=== PATIENT | male | born 1935 | race Caucasian/White ===

== ENCOUNTER 2023-09-03 19:15 | Observation (INO) | payer MEDICARE, SELFPAY ==
[2023-09-03 19:23] VITALS: BP 169/98; PULSE 68; RESP 20; TEMP 36.9; O2SAT 97; BMI 23.7
--- NOTE | 2023-09-03 19:27 | CTR_ITS ---
PROCEDURE INFORMATION: Exam: CT Head Without Contrast Exam date and time: 09/03/2023 7:35 PM Age: 87 years old Clinical indication: Stroke-like symptoms; Altered mental status/memory loss and speech disturbance; Additional info: AMS, expressive aphasia, slurred speech TECHNIQUE: Imaging protocol: Computed tomography of the head without contrast. Radiation optimization: All CT scans at this facility use at least one of these dose optimization techniques: automated exposure control; mA and/or kV adjustment per patient size (includes targeted exams where dose is matched to clinical indication); or iterative reconstruction. Other technique: STROKE PROTOCOL was implemented. REPORTING DATA: Count of CT and Cardiac NM exams in prior 12 months: This patient has received 0 known CTs and 0 known cardiac nuclear medicine studies in the 12 months prior to the current study. COMPARISON: No relevant prior studies available. RADIATION DOSE METRICS: Total DLP (mGy-cm): 1060.48 FINDINGS: Brain: There is no evidence of intracranial hemorrhage. No mass effect or midline shift. No territorial edema. There are moderate confluent periventricular hypodensities consistent with chronic microischemic changes of white matter. There is a chronic lacunar infarct of the left basal ganglia. Cerebral ventricles: There is moderate volume loss and commensurate ventricular dilatation, consistent with the patient's age. Paranasal sinuses: There are retention cysts in the left maxillary sinus. No air-fluid levels. Mastoid air cells: The visualized mastoid air cells are well aerated. Bones/joints: No acute fracture. Soft tissues: Unremarkable. Vasculature: There is atheromatous calcification of the intracranial internal carotid and vertebral arteries. CT/CT head wo con* [id number] IMPRESSION: 1. No acute findings. 2. Moderate cerebral small-vessel disease. 3. 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 4. Age-related involutional changes of brain. ASSESSMENT: ASPECTS ([place] Stroke Program Early CT Score) is 10.
--- NOTE | 2023-09-03 19:27 | XRR_ITS ---
PROCEDURE INFORMATION: Exam: XR Chest Exam date and time: 09/03/2023 7:52 PM Age: 87 years old Clinical indication: Other: AMS; HTN; Patient HX: AMS; Weakness; HTN TECHNIQUE: Imaging protocol: Radiologic exam of the chest. Views: 1 view. COMPARISON: No relevant prior studies available. FINDINGS: Lungs: There is no consolidation. Pleural spaces: No pleural effusion or pneumothorax. Heart/Mediastinum: The heart and mediastinum are normal in size. Bones/joints: Mild dextroconvex rotoscoliosis upper thoracic spine. XR/XR chest 1V portable [id number] IMPRESSION: No acute findings.
--- NOTE | 2023-09-03 19:46 | ECG_ITS ---
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 Measurements Intervals [place] Rate: 65 P: 10 CO: 214 QRS: 89 QRSD: 103 T: 62 QT: 401 QTc: 418 Interpretive Statements SINUS RHYTHM WITH FIRST DEGREE AV BLOCK SEPTAL MYOCARDIAL INFARCTION , OF INDETERMINATE AGE [40+ ms Q WAVE IN V1/V2] No previous ECG available for comparison Electronically Signed On 09-04-2023 22:53:32 CDT by Ehsan Haile M.D. [id number]
--- NOTE | 2023-09-03 20:02 | W.ED.NEUROSD ---
Documented by User: Rudolph Torres, DO 09/03/23 22:56 HPI - Neuro Symptoms/Deficit General: Chief Complaint: Neuro Symptoms/Deficit Stated Complaint: possible stroke Time Seen by Provider: 09/03/23 19:22 Source: patient and family History of Present Illness: 87-year-old male who went to bed around 345 this afternoon. After waking, he went to the bathroom. Family noticed when asking him questions, that he could not express himself appropriately. His words did not make sense. His [id number], who is an OT, ask him several questions, most of which she could not answer appropriately. He followed commands normally. He did draw a normal appearing clock. He has a history of previous stroke with some right-sided symptoms including leg weakness worsened by need for ORIF to the right hip after a fall. He did have some slurred speech as well after his for stroke. Associated symptoms: Deny chest pain, headache(s) or vomiting Review of Systems Const: Denies: fever(s) ENMT: Denies: throat pain Card: Denies: chest pain or palpitations Resp: Denies: dyspnea, productive cough or non-productive cough GI: Denies: abdominal pain or vomiting : Reports: difficulty urinating (Chronic) and urinary frequency (Chronic) Skin/Breast: Denies: rash Neuro: Denies: headache(s) NIH stroke score NIHSS: Level Of Consciousness - 1a: 0 Level Of Consciousness Questions - 1b: Both Correct Level Of Consciousness Commands - 1c: Both Correct Best Gaze - 2: Normal Visual King - 3: No Visual Loss Facial Palsy - 4: Normal Motor Arm Right - 5: No Drift Motor Arm Left - 5: No Drift Motor Leg Right - 6: No Drift Motor Leg Left - 6: No Drift Limb Ataxia - 7: Absent Sensory - 8: Normal Best Language - 9: Mild/Moderate Aphasia Dysarthia - 10: Mild/Moderate Dysarthia Extinction And Inattention - 11: 0 Score: Total Score: 2 Physical Exam Const: COMMON NORMALS: no acute distress and alert GENERAL APPEARANCE: frail appearing (Mildly); not ill appearing HENMT: COMMON NORMALS: normocephalic, atraumatic and Normal external nose present HEAD & SCALP: normocephalic and atraumatic FACE & SINUS: normal facial exam and face symmetric NOSE: Normal external nose present Eye: COMMON NORMALS: Equal, round and reactive pupils present and EOMs intact bilaterally PUPIL: Yes Equal, round and reactive pupils present Neck/C-Spine: GENERAL: Yes trachea midline Chest: CHEST: Yes Symmetrical chest wall rise Resp: COMMON NORMALS: normal respiratory effort and clear to auscultation bilaterally AUSCULTATION: clear to auscultation bilaterally Cardio: COMMON NORMALS: regular rate and regular rhythm RATE: regular rate RHYTHM: regular rhythm GI: COMMON NORMALS: Normal to inspection, nondistended, normoactive bowel sounds present Extremity: GENERAL: No cyanosis and Yes edema (Minimal) Neuro: CLAUDETTE COMA SCALE: document GCS findings Claudette coma scale eye opening: Spontaneous Panther Burn coma scale verbal response: Orientated Claudette coma scale motor response: Obey commands Panther Burn coma scale total score: 15 SENSORIUM/ORIENTATION: Yes alert CRANIAL NERVES: Yes CN normal except as noted COORDINATION/BALANCE: [id number] test normal and [id number]-dj-hagt test normal SPEECH: abnormal speech and expressive aphasia MOTOR EXAM: Pronator motor function not present COORDINATION: [id number]-[id number] test normal and xyei-ft-kvqy test normal Psych: COMMON NORMALS: mental status grossly normal APPEARANCE: Yes grossly normal ATTITUDE: Yes calm Course Vital Signs: Vital signs: Vital Signs Temperature 98.4 F 09/03/23 19:23 Pulse Rate 71 09/03/23 22:48 Respiratory Rate 16 09/03/23 21:18 Blood Pressure 153/86 09/03/23 22:48 Pulse Oximetry 96 09/03/23 22:48 Oxygen Delivery Me thod Room Air 09/03/23 22:48 MDM - Neuro Symptoms/Deficit Medical Decision Making 87-year-old male gentleman with significant expressive aphasia and waking from a nap. He is improved at this point. Family notes that he is back to near baseline. He was quite hypertensive on arrival, with blood pressures as high as 200s over 100s. This has been treated gently. He is afebrile. CBC is normal essentially. BMP shows a creatinine of 1.8, is otherwise not remarkable. Head CT showed no acute findings, but a chronic lacunar infarct on the left. CTA of the brain shows no critical stenosis. There are greater than 100 whites in the urine, with 0-4 reds. Spoke with hospitalist about observation admission due to significant symptoms on presentation, with urinary tract infection. He will see the patient in the ER. Lab Data 09/03/23 20:18 09/03/23 20:18 Radiology Impressions Chest X-Ray 09/03/23 19:27 IMPRESSION: No acute findings. Head CT 09/03/23 19:27 IMPRESSION: 1. No acute findings. 2. Moderate cerebral small-vessel disease. 3. 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 4. Age-related involutional changes of brain. ASSESSMENT: ASPECTS ([place] Stroke Program Early CT Score) is 10. Head/Neck CTA 09/03/23 20:10 IMPRESSION: No large vessel stenosis or occlusion. IMPRESSION: 1. Normal right extracranial internal carotid artery by NASCET criteria.. 2. Atheromatous plaque at the origin of the left extracranial ICA with no stenosis by NASCET criteria. 3. Normal bilateral vertebral arteries. REFERENCES: NASCET CRITERIA. The degree of stenosis in the cervical segment of the internal carotid artery is based on NASCET criteria. Normal is no stenosis. Mild is less than 50% stenosis. Moderate is 50-69% stenosis. Severe is 70% to 99% stenosis. Total occlusion is no detectable patent lumen. Laboratory Results WBC 6.31 10^3/uL (3.29-11.43) 09/03/23 20:18 RBC 4.88 10^6/uL (3.85-5.65) 09/03/23 20:18 Hgb 14.40 g/dL (11.27-16.99) 09/03/23 20:18 Hct 44.1 % (37-53) 09/03/23 20:18 MCV 90.4 fl (82-101) 09/03/23 20:18 MCH 29.5 pg (27-33) 09/03/23 20:18 MCHC 32.7 g/dL (30-55) 09/03/23 20:18 RDW 12.9 % (12.1-15.1) 09/03/23 20:18 Plt Count 111 10^3/cmm (157-399) L 09/03/23 20:18 MPV 10.8 fL (7.4-10.4) H 09/03/23 20:18 Neut % (Auto) 58.1 % 09/03/23 20:18 Lymph % (Auto) 26.1 % 09/03/23 20:18 Faulk % (Auto) 11.4 % 09/03/23 20:18 Eos % (Auto) 3.3 % 09/03/23 20:18 Baso % (Auto) 0.8 % 09/03/23 20:18 Neut # (Auto) 3.66 10^3/uL (1.8-7.7) 09/03/23 20:18 Lymph # (Auto) 1.7 10^3/uL (0.8-4.8) 09/03/23 20:18 Faulk # (Auto) 0.7 10^3/uL (0.2-0.9) 09/03/23 20:18 Eos # (Auto) 0.2 10^3/uL (0.0-0.8) 09/03/23 20:18 Baso # (Auto) 0.1 10^3/uL (0.0-0.1) 09/03/23 20:18 Nucleated RBC % (auto) 0 % 09/03/23 20:18 Nucleated RBCs # 0.0 /100WBC 09/03/23 20:18 PT 12.60 SECONDS (12.1-14.9) 09/03/23 20:18 INR 0.92 (0.8-1.2) 09/03/23 20:18 APTT 24.3 SECONDS (23.9-36.7) 09/03/23 20:18 Sodium 137 mmol/L (136-145) 09/03/23 20:18 Potassium 4.1 mmol/L (3.5-5.1) 09/03/23 20:18 Chloride 103 mmol/L (98-107) 09/03/23 20:18 Carbon Dioxide 26 mmol/L (22-29) 09/03/23 20:18 Anion Gap 12.1 (5-19) 09/03/23 20:18 BUN 24 mg/dL (8-23) H 09/03/23 20:18 Creatinine 1.8 mg/dL (0.7-1.2) H 09/03/23 20:18 GFR Calculation Not Reportable 09/03/23 20:18 Glucose 96 mg/dL (65-115) 09/03/23 20:18 Calculated Osmolality 288 mOsm/kg (285-295) 09/03/23 20:18 Lactic Acid 1.4 mmol/L (0.5-2.2) 09/03/23 20:18 Calcium 9.5 mg/dL (8.5-10.5) 09/03/23 20:18 Magnesium 2.0 mg/dL (1.7-2.3) 09/03/23 20:18 Total Bilirubin 0.4 mg/dL (0.15-1.2) 09/03/23 20:18 AST 12 U/L (0-40) 09/03/23 20:18 ALT 9 U/L (0-41) 09/03/23 20:18 Alkaline Phosphatase 75 U/L (40-130) 09/03/23 20:18 C-Reactive Protein 3.0 mg/L (0.0-4.9) 09/03/23 20:18 Total Protein 7.0 g/dL (6.6-8.7) 09/03/23 20:18 Albumin 3.9 g/dL (3.5-5.2) 09/03/23 20:18 Globulin 3.1 g/dL (1.3-4.6) 09/03/23 20:18 Urine Color Yellow (Yellow) 09/03/23 19:43 Urine Appearance Cloudy (CLEAR) A 09/03/23 19:43 Urine pH 6 (5-7) 09/03/23 19:43 Ur Specific [place] 1.010 (1.005-1.030) 09/03/23 19:43 Urine Protein Neg (Negative) 09/03/23 19:43 Urine Glucose (UA) Norm (Normal) 09/03/23 19:43 Urine Ketones Negative (Negative) 09/03/23 19:43 Urine Blood Neg (Negative) 09/03/23 19:43 Urine Nitrate Negative (Negative) 09/03/23 19:43 Urine Bilirubin Neg (Negative) 09/03/23 19:43 Urine Urobilinogen Neg mg/dL (Negative) 09/03/23 19:43 Ur Leukocyte Esterase 2+ (Negative) H 09/03/23 19:43 Urine RBC 0-4 /hpf (0-2) H 09/03/23 19:43 Urine WBC >100 /hpf (0-5) H 09/03/23 19:43 Ur Squamous Epith Cells None /hpf (0-5) 09/03/23 19:43 Amorphous Sediment Not Reportable 09/03/23 19:43 Urine Bacteria 3+ /hpf (NONE) H 09/03/23 19:43 Ethyl Alcohol < 10 mg/dL (0-10) 09/03/23 20:18 All radiology interpretation(s) finalized by discharge Discharge Plan Discharge Patient Disposition: Placed in Observation Clinical Impression: Urinary tract infection, Hypertension, Expressive aphasia Coding Level of Care Code ED Gum Mixer for Chg Fwd Documented by User: Carter Lynch MD 09/03/23 21:19 HPI - Neuro Symptoms/Deficit General: Chief Complaint: Neuro Symptoms/Deficit Stated Complaint: possible stroke Time Seen by Provider: 09/03/23 19:22 NIH stroke score Score: Total Score: 2 Physical Exam Neuro: CLAUDETTE COMA SCALE: document GCS findings Panther Burn coma scale total score: 15 Course Vital Signs: Vital signs: Vital Signs Temperature 98.4 F 09/03/23 19:23 Pulse Rate 71 09/03/23 22:48 Respiratory Rate 16 09/03/23 21:18 Blood Pressure 153/86 09/03/23 22:48 Pulse Oximetry 96 09/03/23 22:48 Oxygen Delivery Me thod Room Air 09/03/23 22:48 MDM - Neuro Symptoms/Deficit Lab Data 09/03/23 20:18 09/03/23 20:18 Radiology Impressions Chest X-Ray 09/03/23 19:27 IMPRESSION: No acute findings. Head CT 09/03/23 19:27 IMPRESSION: 1. No acute findings. 2. Moderate cerebral small-vessel disease. 3. 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 4. Age-related involutional changes of brain. ASSESSMENT: ASPECTS ([place] Stroke Program Early CT Score) is 10. Head/Neck CTA 09/03/23 20:10 IMPRESSION: No large vessel stenosis or occlusion. IMPRESSION: 1. Normal right extracranial internal carotid artery by NASCET criteria.. 2. Atheromatous plaque at the origin of the left extracranial ICA with no stenosis by NASCET criteria. 3. Normal bilateral vertebral arteries. REFERENCES: NASCET CRITERIA. The degree of stenosis in the cervical segment of the internal carotid artery is based on NASCET criteria. Normal is no stenosis. Mild is less than 50% stenosis. Moderate is 50-69% stenosis. Severe is 70% to 99% stenosis. Total occlusion is no detectable patent lumen. Laboratory Results WBC 6.31 10^3/uL (3.29-11.43) 09/03/23 20:18 RBC 4.88 10^6/uL (3.85-5.65) 09/03/23 20:18 Hgb 14.40 g/dL (11.27-16.99) 09/03/23 20:18 Hct 44.1 % (37-53) 09/03/23 20:18 MCV 90.4 fl (82-101) 09/03/23 20:18 MCH 29.5 pg (27-33) 09/03/23 20:18 MCHC 32.7 g/dL (30-55) 09/03/23 20:18 RDW 12.9 % (12.1-15.1) 09/03/23 20:18 Plt Count 111 10^3/cmm (157-399) L 09/03/23 20:18 MPV 10.8 fL (7.4-10.4) H 09/03/23 20:18 Neut % (Auto) 58.1 % 09/03/23 20:18 Lymph % (Auto) 26.1 % 09/03/23 20:18 Faulk % (Auto) 11.4 % 09/03/23 20:18 Eos % (Auto) 3.3 % 09/03/23 20:18 Baso % (Auto) 0.8 % 09/03/23 20:18 Neut # (Auto) 3.66 10^3/uL (1.8-7.7) 09/03/23 20:18 Lymph # (Auto) 1.7 10^3/uL (0.8-4.8) 09/03/23 20:18 Faulk # (Auto) 0.7 10^3/uL (0.2-0.9) 09/03/23 20:18 Eos # (Auto) 0.2 10^3/uL (0.0-0.8) 09/03/23 20:18 Baso # (Auto) 0.1 10^3/uL (0.0-0.1) 09/03/23 20:18 Nucleated RBC % (auto) 0 % 09/03/23 20:18 Nucleated RBCs # 0.0 /100WBC 09/03/23 20:18 PT 12.60 SECONDS (12.1-14.9) 09/03/23 20:18 INR 0.92 (0.8-1.2) 09/03/23 20:18 APTT 24.3 SECONDS (23.9-36.7) 09/03/23 20:18 Sodium 137 mmol/L (136-145) 09/03/23 20:18 Potassium 4.1 mmol/L (3.5-5.1) 09/03/23 20:18 Chloride 103 mmol/L (98-107) 09/03/23 20:18 Carbon Dioxide 26 mmol/L (22-29) 09/03/23 20:18 Anion Gap 12.1 (5-19) 09/03/23 20:18 BUN 24 mg/dL (8-23) H 09/03/23 20:18 Creatinine 1.8 mg/dL (0.7-1.2) H 09/03/23 20:18 GFR Calculation Not Reportable 09/03/23 20:18 Glucose 96 mg/dL (65-115) 09/03/23 20:18 Calculated Osmolality 288 mOsm/kg (285-295) 09/03/23 20:18 Lactic Acid 1.4 mmol/L (0.5-2.2) 09/03/23 20:18 Calcium 9.5 mg/dL (8.5-10.5) 09/03/23 20:18 Magnesium 2.0 mg/dL (1.7-2.3) 09/03/23 20:18 Total Bilirubin 0.4 mg/dL (0.15-1.2) 09/03/23 20:18 AST 12 U/L (0-40) 09/03/23 20:18 ALT 9 U/L (0-41) 09/03/23 20:18 Alkaline Phosphatase 75 U/L (40-130) 09/03/23 20:18 C-Reactive Protein 3.0 mg/L (0.0-4.9) 09/03/23 20:18 Total Protein 7.0 g/dL (6.6-8.7) 09/03/23 20:18 Albumin 3.9 g/dL (3.5-5.2) 09/03/23 20:18 Globulin 3.1 g/dL (1.3-4.6) 09/03/23 20:18 Urine Color Yellow (Yellow) 09/03/23 19:43 Urine Appearance Cloudy (CLEAR) A 09/03/23 19:43 Urine pH 6 (5-7) 09/03/23 19:43 Ur Specific [place] 1.010 (1.005-1.030) 09/03/23 19:43 Urine Protein Neg (Negative) 09/03/23 19:43 Urine Glucose (UA) Norm (Normal) 09/03/23 19:43 Urine Ketones Negative (Negative) 09/03/23 19:43 Urine Blood Neg (Negative) 09/03/23 19:43 Urine Nitrate Negative (Negative) 09/03/23 19:43 Urine Bilirubin Neg (Negative) 09/03/23 19:43 Urine Urobilinogen Neg mg/dL (Negative) 09/03/23 19:43 Ur Leukocyte Esterase 2+ (Negative) H 09/03/23 19:43 Urine RBC 0-4 /hpf (0-2) H 09/03/23 19:43 Urine WBC >100 /hpf (0-5) H 09/03/23 19:43 Ur Squamous Epith Cells None /hpf (0-5) 09/03/23 19:43 Amorphous Sediment Not Reportable 09/03/23 19:43 Urine Bacteria 3+ /hpf (NONE) H 09/03/23 19:43 Ethyl Alcohol < 10 mg/dL (0-10) 09/03/23 20:18 Discharge Plan Discharge Patient Disposition: Placed in Observation Clinical Impression: Urinary tract infection, Hypertension, Expressive aphasia Coding Level of Care Code ED Gum Mixer for Manoj Moser
--- NOTE | 2023-09-03 20:10 | CTR_ITS ---
PROCEDURE INFORMATION: Exam: CTA Head With Contrast, Arteriography Exam date and time: 09/03/2023 8:25 PM Age: 87 years old Clinical indication: Cognitive deficit and speech disturbance; Altered mental status; Patient HX: Sudden onset of confusion with aphasia/slurred speech. ; Additional info: Expressive aphasia TECHNIQUE: Imaging protocol: Computed tomographic angiography of the head with contrast. Exam focused on the arteries. 3D rendering (Not supervised by radiologist): MIP and/or 3D reconstructed images were created by the technologist. Radiation optimization: All CT scans at this facility use at least one of these dose optimization techniques: automated exposure control; mA and/or kV adjustment per patient size (includes targeted exams where dose is matched to clinical indication); or iterative reconstruction. Contrast material: OMNI 350; Contrast volume: 100 ml; Contrast route: INTRAVENOUS (IV); REPORTING DATA: Count of CT and Cardiac NM exams in prior 12 months: This patient has received 0 known CTs and 0 known cardiac nuclear medicine studies in the 12 months prior to the current study. COMPARISON: CT head wo con* [id number] 09/03/2023 7:35 PM RADIATION DOSE METRICS: Total DLP (mGy-cm): 492.38 FINDINGS: ANTERIOR CIRCULATION: Right internal carotid artery: Intracranial segment is patent with no significant stenosis. No aneurysm. Right middle cerebral artery: No occlusion or significant stenosis. No aneurysm. Right anterior cerebral artery: No occlusion or significant stenosis. No aneurysm. Left internal carotid artery: Intracranial segment is patent with no significant stenosis. No aneurysm. Left middle cerebral artery: No occlusion or significant stenosis. No aneurysm. Left anterior cerebral artery: Hypoplastic right A1 segment with a patent anterior communicating artery, variant. No aneurysm. POSTERIOR CIRCULATION: Right vertebral artery: No occlusion or significant stenosis. No aneurysm. Left vertebral artery: No occlusion or significant stenosis. No aneurysm. Basilar artery: No occlusion or significant stenosis. No aneurysm. Right posterior cerebral artery: No occlusion or significant stenosis. No aneurysm. Left posterior cerebral artery: No occlusion or significant stenosis. No aneurysm. Brain: No definite mass, mass effect, or midline shift. Cerebral ventricles: No ventriculomegaly. Bones/joints: Unremarkable. No acute fracture. Soft tissues: Unremarkable. PROCEDURE INFORMATION: Exam: CTA Neck With Contrast Exam date and time: 09/03/2023 8:25 PM Age: 87 years old Clinical indication: Cognitive deficit and speech disturbance; Altered mental status; Patient HX: Sudden onset of confusion with aphasia/slurred speech. ; Additional info: Expressive aphasia TECHNIQUE: Imaging protocol: Computed tomographic angiography of the neck with contrast. 3D rendering (Not supervised by radiologist): MIP and/or 3D reconstructed images were created by the technologist. Radiation optimization: All CT scans at this facility use at least one of these dose optimization techniques: automated exposure control; mA and/or kV adjustment per patient size (includes targeted exams where dose is matched to clinical indication); or iterative reconstruction. Contrast material: OMNI 350; Contrast volume: 100 ml; Contrast route: INTRAVENOUS (IV); REPORTING DATA: Count of CT and Cardiac NM exams in prior 12 months: This patient has received 0 known CTs and 0 known cardiac nuclear medicine studies in the 12 months prior to the current study. COMPARISON: CT head wo con* [id number] 09/03/2023 7:35 PM RADIATION DOSE METRICS: Total DLP (mGy-cm): 492.38 FINDINGS: Right common carotid artery: No significant stenosis. No dissection or occlusion. Right internal carotid artery: No significant stenosis of the extracranial segment. No dissection or occlusion. Right external carotid artery: No occlusion or significant stenosis of the origin. Left common carotid artery: No significant stenosis. No dissection or occlusion. Left internal carotid artery: Atheromatous calcification at the origin of the extracranial internal carotid artery with no significant stenosis. No dissection or occlusion. The No dissection or occlusion. Left external carotid artery: No occlusion or significant stenosis of the origin. Right vertebral artery: No significant stenosis. No dissection or occlusion. Left vertebral artery: No significant stenosis. No dissection or occlusion. Soft tissues: No significant soft tissue swelling. Bones/joints: No acute fracture. Multilevel degenerative disc disease without significant spinal canal stenosis.There are multilevel facet arthrosis and posterior hypertrophic bony changes with corresponding neural foraminal narrowing. CT/CT angio headneck* [id number] IMPRESSION: No large vessel stenosis or occlusion. IMPRESSION: 1. Normal right extracranial internal carotid artery by NASCET criteria.. 2. Atheromatous plaque at the origin of the left extracranial ICA with no stenosis by NASCET criteria. 3. Normal bilateral vertebral arteries. REFERENCES: NASCET CRITERIA. The degree of stenosis in the cervical segment of the internal carotid artery is based on NASCET criteria. Normal is no stenosis. Mild is less than 50% stenosis. Moderate is 50-69% stenosis. Severe is 70% to 99% stenosis. Total occlusion is no detectable patent lumen.
[2023-09-03 20:13] LABS: Add Urine Microscopic? YES; Bilirubin Urine Neg (Negative); Blood Urine Neg (Negative); Glucose Urine UA Norm (Normal); Ketones Urine Negative (Negative); Leukocyte Esterase Urine 2+ (Negative); Nitrate Urine Negative (Negative); Protein Urine Neg (Negative); Urine Appearance Cloudy (CLEAR); Urine Color Yellow (Yellow); Urobilinogen Urine Neg (Negative); pH Urine 6 (5-7)
[2023-09-03] MEDS: sodium chloride 0.9% 500 ML IV (20:16)
[2023-09-03 20:18] LABS: Add Urine Culture? Yes; Bacteria Urine 3+ /hpf; RBC Urine 0-4 /hpf (0-2); WBC Urine >100 /hpf (0-5)
[2023-09-03 20:25] LABS: Basophils # 0.1 10^3/uL (0.0-0.1); Basophils % 0.8 %; Eosinophils # 0.2 10^3/uL (0.0-0.8); Eosinophils % 3.3 %; Hematocrit 44.1 % (37-53); Lymphocytes # 1.7 10^3/uL (0.8-4.8); Lymphocytes % 26.1 %; Mean Corpuscular HGB Conc 32.7 g/dL (30-55); Mean Corpuscular Hemoglobin 29.5 pg (27-33); Mean Corpuscular Volume 90.4 fl (82-101); Mean Platelet Volume 10.8 fL (7.4-10.4); Monocytes # 0.7 10^3/uL (0.2-0.9); Monocytes % 11.4 %; Neutrophils # 3.66 10^3/uL (1.8-7.7); Neutrophils % 58.1 %; Nucleated Red Blood Cells % 0 %; Platelet Count 111 10^3/cmm (157-399); Red Blood Count 4.88 10^6/uL (3.85-5.65); Red Cell Distribution Width 12.9 % (12.1-15.1); White Blood Count 6.31 10^3/uL (3.29-11.43)
[2023-09-03] MEDS: iohexol 350 mg/mL 500 mL Btl (per mL) IV (20:27)
[2023-09-03 20:39] LABS: INR 0.92 (0.8-1.2)
[2023-09-03 20:40] LABS: Partial Thromboplastin Time 24.3 SECONDS (23.9-36.7)
[2023-09-03 20:44] LABS: Alanine Aminotransferase 9 U/L (0-41); Albumin Level 3.9 g/dL (3.5-5.2); Alkaline Phosphatase 75 U/L (40-130); Anion Gap 12.1 (5-19); Aspartate Amino Transferase 12 U/L (0-40); Blood Urea Nitrogen 24 mg/dL (8-23); Calcium 9.5 mg/dL (8.5-10.5); Carbon Dioxide 26 mmol/L (22-29); Chloride 103 mmol/L (98-107); Globulin 3.1 g/dL (1.3-4.6); Glucose 96 mg/dL (65-115); Osmolality Calculated 288 mOsm/kg (285-295); Potassium 4.1 mmol/L (3.5-5.1); Sodium 137 mmol/L (136-145); Total Bilirubin 0.4 mg/dL (0.15-1.2)
[2023-09-03 20:45] LABS: Alcohol Level < 10 mg/dL (0-10); Lactic Sepsis W/Reflex 1.4 mmol/L (0.5-2.2)
[2023-09-03] MEDS: cefTRIAXone 1,000 MG in sodium chloride 0.9% (plus) 50 ML 100 MG IV (21:16)
[2023-09-03 21:18] VITALS: BP 191/96; PULSE 75; RESP 16; O2SAT 94
[2023-09-03] MEDS: labetalol 5 mg/mL SDV 20mL 20 MG IVP (21:42)
[2023-09-03] MEDS: metoprolol tartrate 25 mg Tablet PO (22:42)
[2023-09-03] MEDS: labetalol 5 mg/mL SDV 20mL 10 MG IVP (22:42)
[2023-09-03 22:48] VITALS: BP 153/86; PULSE 71; O2SAT 96
--- NOTE | 2023-09-03 23:20 | CTR_ITS ---
PROCEDURE INFORMATION: Exam: CT Abdomen And Pelvis Without Contrast Exam date and time: 09/03/2023 11:38 PM Age: 87 years old Clinical indication: Other: Eduardo. Bacteriuria. Prior surgery; Surgery date: 6+ months; Surgery type: Colostomy. RT hip. Patient HX: Eduardo with bacteriuria. ; Additional info: Abd pain, UTI TECHNIQUE: Imaging protocol: Computed tomography of the abdomen and pelvis without contrast. Radiation optimization: All CT scans at this facility use at least one of these dose optimization techniques: automated exposure control; mA and/or kV adjustment per patient size (includes targeted exams where dose is matched to clinical indication); or iterative reconstruction. REPORTING DATA: Count of CT and Cardiac NM exams in prior 12 months: This patient has received 0 known CTs and 0 known cardiac nuclear medicine studies in the 12 months prior to the current study. COMPARISON: CR (CHEST, ) 09/03/2023 7:52 PM RADIATION DOSE METRICS: Total DLP (mGy-cm): 649.92 FINDINGS: Lungs: The visualized lung espinal show mild bibasilar atelectasis. Diaphragm: There is a small sliding hiatal hernia. Liver: The liver is normal in size and homogeneous density. Gallbladder and bile ducts: There are multiple calcified gallstones. There is no significant gallbladder wall thickening or pericholecystic fluid. Pancreas: The pancreas is normal. Spleen: The spleen is normal in size and density. Adrenal glands: The adrenal glands are normal. Kidneys and ureters: Presently there is bilateral symmetrical excretion of radiographic contrast by both kidneys. There is no hydronephrosis. Both ureters are seen to fill and the bladder is moderately distended with radiographic contrast. Stomach and bowel: Extensive diverticulosis is present throughout the colon. There is no evidence of small bowel or colonic obstruction. Prior left hemicolectomy. 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 Appendix: A normal appendix is identified. Intraperitoneal space: No free air. No significant fluid collection. Vasculature: There is mild atherosclerotic calcification of the abdominal aorta and its branches without aneurysm. Lymph nodes: No enlarged retroperitoneal or mesenteric lymph nodes. Urinary bladder: Bladder wall thickening suggesting cystitis, incomplete distention or chronic outflow obstruction. Reproductive: Unremarkable as visualized. Bones/joints: Multilevel degenerative disc disease without significant spinal canal stenosis. Moderate superior endplate compression fracture of L2 of chronic appearance. There is orthopedic hardware for ORIF of an old right femoral intertrochanteric fracture. Soft tissues: There are small bilateral nonobstructing inguinal hernias containing adipose tissue. Other findings: . CT/CT kidney stone 75319 IMPRESSION: 1. Presently both kidneys are in the excretory phase and ureters appear patent. There is no evidence of acute pyelonephritis however, cystitis and/or pyelitis may be present. 2. Extensive colonic diverticulosis without acute diverticulitis. 3. Prior left hemicolectomy. 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
[2023-09-04] VITALS (10 sets, daily range): BP systolic 111–165; BP diastolic 56–87; PULSE 46–64; RESP 13–19; TEMP 36.3–36.7; O2SAT 93–96
--- NOTE | 2023-09-04 00:03 | PC.NURSE ---
Report called to GEMMA Yang on Med-Surg. All questions and concerns addressed at time of report.
--- NOTE | 2023-09-04 00:32 | PM.HP ---
Providers/Chief Complaint Admitting Physician: Main Echavarria MD Chief Complaint: possible stroke History of Present Illness Cheikh Alcaraz is a 87 year old male with a past medical history of hypertension, although not on any medications, history of TURP, history of right hip replacement, history of CVA with residual right-sided deficits, who lives with family, ambulates with a walker, has residual right lower extremity weakness, after his stroke, roughly 3 years ago, who presents [facility] due to word finding difficulty, word salad. Currently patient is alert oriented x3, following all commands, no facial droop, no slurring of his words, no word finding difficulty, NIH stroke scale is 0, was not deemed a tPA candidate on admission, patient's eating at [employer] meal as I am speaking with him. Family members at bedside tell me that he lives with family members, he has chronic right lower extremity weakness after stroke, he uses a walker, he today at about 6 PM, family members observed him, having word finding difficulty, word salad, he does not take any blood thinners at home, is not on any aspirin, no history of CAD, history of smoking no history of COPD, no history of A-fib, he is noted to be hypertensive on admission, given labetalol and metoprolol, given fluids Review of Systems Const: Denies: fever(s) Eyes: Denies: change in vision Card: Denies: chest pain Resp: Denies: dyspnea GI: Denies: abdominal pain : Reports: flank pain Musc: Reports: back pain Skin/Breast: Denies: rash Neuro: Reports: weakness in extremities and difficulty communicating thoughts; Denies: headache(s), numbness in extremities, sensory changes or Slurred speech present Endo: Denies: polyuria PFSH Acute PFSH: Medical History (Updated 09/04/23 @ 00:37 by Main Echavarria MD) History of CVA (cerebrovascular accident) Surgical History (Updated 09/04/23 @ 00:35 by Main Echavarria MD) History of right hip replacement History of transurethral resection of prostate Family History (Updated 09/04/23 @ 00:36 by Main Echavarria MD) Mother Diabetes Social History (Updated 09/04/23 @ 00:36 by Main Echavarria MD) Smoking and tobacco status: never smoked Alcohol intake: never Substance/Drug Use: never Vitals/I&O/Wt Last Vital Signs Temp 98.4 F 09/03/23 19:23 Pulse 71 09/03/23 22:48 Resp 16 09/03/23 21:18 BP 153/86 09/03/23 22:48 Pulse Ox 96 09/03/23 22:48 O2 Del Method Room Air 09/03/23 22:48 09/03/23 09/03/23 09/04/23 14:59 22:59 06:59 Intake Total 550 / 550 Output Total 280 / 280 Balance 550 / 550 -280 / 270 Weight last 48 hrs Weight 77.111 kg Physical Exam Const: COMMON NORMALS: no acute distress and patient oriented x3 GENERAL APPEARANCE: cooperative and well developed HENMT: COMMON NORMALS: normocephalic and Normal external nose present HEAD & SCALP: normocephalic FACE & SINUS: normal facial exam NOSE: Normal external nose present Eye: COMMON NORMALS: Equal, round and reactive pupils present, EOMs intact bilaterally, conjunctivae normal and no scleral icterus CONJUNCTIVA: Yes conjunctivae normal PUPIL: Yes Equal, round and reactive pupils present Neck/C-Spine: COMMON NORMALS: full ROM, no lymphadenopathy, no JVD and No carotid bruits Lymph: LYMPHATIC: no lymphadenopathy noted Chest: COMMONS NORMALS: normal inspection of the chest Resp: COMMON NORMALS: normal respiratory effort, No retractions, No use of accessory muscles and clear to auscultation bilaterally AUSCULTATION: clear to auscultation bilaterally Cardio: COMMON NORMALS: regular rate, regular rhythm, S1 normal heart sound present, S2 normal heart sound present, No murmurs present (Cardio) and Peripheral pulses 2+ throughout RATE: regular rate RHYTHM: regular rhythm HEART SOUNDS: S1 normal heart sound present and S2 normal heart sound present PERIPHERAL PULSES: Peripheral pulses 2+ throughout GI: COMMON NORMALS: Normal to inspection, nondistended, normoactive bowel sounds present, Soft to palpation and non-tender : BLADDER/KIDNEY EXAM: Yes no CVA tenderness Back/Pelvis: COMMON NORMALS: no CVA tenderness Extremity: COMMON NORMALS: normal to inspection, no calf tenderness and no pedal edema Neuro: COMMON NORMALS: patient oriented x3, CN's II-XII intact bilaterally and moves all extremities OTHER: Does have right lower extremity weakness, 4 out of 5 compared to 5 out of 5 on the left, family reports that this is chronic, after his last stroke Psych: COMMON NORMALS: mental status grossly normal, Normal thought process present, cooperative and speech normal APPEARANCE: Yes well kempt SPEECH: Yes normal speech THOUGHT PROCESS: Normal thought process present Skin: COMMON NORMALS: turgor normal and no jaundice GENERAL SKIN EXAM: turgor normal Data 09/03/23 20:18 09/03/23 20:18 Micro: Microbiology 09/03/23 20:35 Blood Culture - Preliminary Blood SPECIMEN COLLECTED 09/03/23 20:41 Blood Culture - Preliminary Blood SPECIMEN COLLECTED A&P Assessment and plan (1) TIA (transient ischemic attack): (2) Urinary tract infection: (3) Hypertension: (4) Expressive aphasia: (5) Acute kidney injury: Plan Transient ischemic attack with history of strokes -Word finding difficulty -Currently NIH stroke scale 0, not a tPA candidate -CT head - CT/CT head wo con* [id number] IMPRESSION: 1. ? No acute findings. 2. ? Moderate cerebral small-vessel disease. 3. ? 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 4. ? Age-related involutional changes of brain. -CTA head and neck IMPRESSION: 1. ? Normal right extracranial internal carotid artery by NASCET criteria.. 2. ? Atheromatous plaque at the origin of the left extracranial ICA with no stenosis by NASCET criteria. 3. ? Normal bilateral vertebral arteries. Plan -Neurochecks, NIH stroke scale, aspiration precautions, bedside swallow eval ? PT OT ? Aspirin, statin ? Cardiac echo ? dnr/dni, lovenox for dvt prophylaxis Acute kidney injury, creatinine 1.8, baseline kidney function unknown, IV fluids UTI, with a significant amount of white blood cells, -Does have some right hip pain, right flank pain on palpation, CT scan to evaluate for obstructive uropathy given creatinine elevation -Continue Rocephin Hypertension, blood pressure medications Attestations Medical Necessity Statement*: Patient requires hospitalization, outpatient with observation, for word finding difficulty, TIA, RADHA, UTI, hypertension Diagnoses TIA (transient ischemic attack) G45.9 Urinary tract infection N39.0 Hypertension I10 Expressive aphasia R47.01 Acute kidney injury N17.9
--- NOTE | 2023-09-04 01:00 | USCV_ITS ---
Cheikh Alcaraz Age: 87 Gender: M : 1935 Exam Date: 09/04/2023 07:18 Ordering Phys: Main Echavarria MD Technologist: Price Ramirez [place] [facility] [place]: cva BP: 161 / 81 HR: 51 Rhythm: Sinus Technical Quality: Adequate MEASUREMENTS (Male / Female) Normal Values 2D ECHO LVOT Diameter 2.1 cm LV Ejection Fraction MOD 2C 65.6 % LV Ejection Fraction 2C AL 65.9 % LA Diameter 3.8 cm LA Width 3.3 cm LA Height 4.8 cm RA Width 3.1 cm RA Height 5.1 cm Aorta at Sinotubular Diameter 2.5 cm IVC Diameter 2.0 cm M-MODE Aortic Annulus Diameter 2.4 cm LA Ao Ratio MM 1.6 MV E Point Septal Separation 0.2 cm DOPPLER AV Peak Velocity 201.0 cm/s LVOT Peak Velocity 82.0 cm/s AV Area Cont Eq vti 1.5 cm squared AV Area Cont Eq pk 1.4 cm squared MV Peak Velocity 119.0 cm/s MV Area PHT 4.8 cm squared Mitral E to A Ratio 1.0 MV E' Velocity 45.0 cm/s Mitral E to MV E' Ratio 7.4 Mitral E to LV E' Lateral Ratio 6.5 Mitral E to LV E' Septal Ratio 8.6 TR Peak Velocity 230.4 cm/s TR Peak Gradient 21.2 mmHg TR Mean Velocity 195.0 cm/s TR Mean Gradient 15.5 mmHg TR Velocity Time Integral 71.2 cm Right Atrial Pressure 3.0 mmHg Pulmonary Artery Systolic Pressu 24.2 mmHg PV Peak Velocity 112.0 cm/s RV Acceleration Time 0.1 s RV Ejection Time 0.4 s RV AcT/ET 0.4 FINDINGS Left Ventricle Normal left ventricular size, systolic function and wall thickness, with no regional wall motion abnormalities. Normal left ventricular wall thickness. Normal diastolic filling pattern. Right Ventricle The right ventricle is normal in size and function. Right Atrium The right atrium is normal in size. Left Atrium The left atrium is normal in size. Mitral Valve Structurally normal mitral valve without significant stenosis or prolapse. There is no mitral regurgitation. Aortic Valve Aortic valve is moderately calcified without significant stenosis. There is no aortic regurgitation. Tricuspid Valve Structurally normal tricuspid valve without significant stenosis there is mild regurgitation. Pulmonary artery systolic pressure is normal. Pulmonic Valve Structurally normal pulmonic valve without significant stenosis. There is mild mild pulmonic regurgitation. Pericardium Normal pericardium without effusion. Aorta Normal ascending aorta dimension. IVC The inferior vena cava appears normal. CONCLUSIONS Romario Hickey MD (Electronically Signed) Final Date: 04 September 2023 10:45 S
[2023-09-04] MEDS: pantoprazole 40 mg SDV IVP ×2 (01:37→23:57)
[2023-09-04] MEDS: aspirin 81 mg EC Tablet PO ×2 (01:47→08:17)
[2023-09-04] MEDS: enoxaparin 40 mg/0.4 mL Syringe SUBCUT (01:47)
[2023-09-04 02:08] LABS: Estmated Average Glucose 105; Hemoglobin A1C 5.3 % (4.0-6.0)
[2023-09-04 02:10] LABS: Troponin(5th) Baseline 24 ng/L (0-15)
[2023-09-04 02:22] LABS: NT Pro B Type Natriuretic Pept 94 pg/mL (0-450); Procalcitonin 0.06 ng/mL (0-0.5)
[2023-09-04 02:33] LABS: Chol HDL Ratio 2.93 mg/dL (1.0-5.00); Cholesterol 161 mg/dL (0-200); HDL Cholesterol 55 mg/dL (60-100); LDL Cholesterol Calculated 69 mg/dL (50-129); LDL HDL Ratio 1.25 RATIO (0.00-3.22); Triglycerides 184 mg/dL (0-150)
--- NOTE | 2023-09-04 03:02 | ECG_ITS ---
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 Measurements Intervals [place] Rate: 57 P: 70 MA: 278 QRS: 91 QRSD: 129 T: 68 QT: 424 QTc: 413 Interpretive Statements SINUS BRADYCARDIA WITH FIRST DEGREE AV BLOCK RIGHT BUNDLE BRANCH BLOCK [120+ ms QRS DURATION, UPRIGHT V1, 40+ ms S IN I/aVL/V4/V5/V6] Compared to ECG 09/03/2023 19:46:50 Right bundle-branch block now present Sinus rhythm no longer present Myocardial infarct finding no longer present Electronically Signed On 09-04-2023 22:58:27 CDT by Ehsan Haile M.D. [id number]
[2023-09-04 03:40] LABS: Troponin 5 2HR 25.74 ng/L (0-15); Troponin 5 2HR Delta 1.74 ABS# (0-10)
[2023-09-04] MEDS: amlodipine 10 mg Tablet PO (06:24)
--- NOTE | 2023-09-04 06:33 | ECG_ITS ---
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 Measurements Intervals [place] Rate: 51 P: 64 [place]: 252 QRS: 86 QRSD: 125 T: 43 QT: 443 QTc: 410 Interpretive Statements SINUS BRADYCARDIA WITH FIRST DEGREE AV BLOCK RIGHT BUNDLE BRANCH BLOCK [120+ ms QRS DURATION, UPRIGHT V1, 40+ ms S IN I/aVL/V4/V5/V6] Compared to ECG 09/04/2023 03:02:27 No significant changes Electronically Signed On 09-04-2023 22:58:14 CDT by Ehsan Haile M.D. [id number]
[2023-09-04 08:09] LABS: Troponin 5 6HR 26.81 ng/L (0-15)
[2023-09-04 08:10] LABS: Troponin 5 6HR Delta 2.81 ng/L (0-12)
--- NOTE | 2023-09-04 10:15 | PC.PHAR ---
pts family states the pt takes around 20 otc vitamins-states unsure of the names of the vitamins-states the pt is here visiting and hasnt taken them for a week states the pt didnt bring them with him
--- NOTE | 2023-09-04 10:25 | PM.MISC ---
Miscellaneous Note Note: Patient will stay [address] Olguin catheter Start tamsulosin Postrenal RADHA Continue aspirin and Plavix Patient does not want atorvastatin Bradycardia without hemodynamic changes Avoid beta-ke Optimize antihypertensive regimen TIA I do believe the symptoms are related to UTI
[2023-09-04] MEDS: tamsulosin 0.4 mg Capsule PO (11:31)
--- NOTE | 2023-09-04 12:48 | PC.NURSE ---
bladder scan showed 421, then pt voided 150 post void scan showed 361
--- NOTE | 2023-09-04 13:09 | PC.OT ---
PATIENT OT EVAL IS ON HOLD TODAY. DISCUSSED WITH FAMILY .PATIENT IS HAVING ISSUES WITH CATHETER AND COLOSTOMY Bag.Is being treated for UTI RELATED concerns AT THIS TIME. DAUGHTER IN LAW IS IN AGREEMENT TO HOLD OT EVAL TODAY . NURSING NOTIFIED.
[2023-09-04] MEDS: atorvastatin 40 mg Tablet PO (20:11)
[2023-09-05 00:10] VITALS: BP 115/63; PULSE 62; RESP 18; TEMP 36.7; O2SAT 93
[2023-09-05 04:01] VITALS: BP 128/66; PULSE 65; RESP 19; TEMP 36.7; O2SAT 95
[2023-09-05 04:56] LABS: Basophils % 0.5 %; Eosinophils # 0.2 10^3/uL (0.0-0.8); Eosinophils % 3.1 %; Hematocrit 39.3 % (37-53); Lymphocytes # 1.9 10^3/uL (0.8-4.8); Lymphocytes % 24.3 %; Mean Corpuscular HGB Conc 32.1 g/dL (30-55); Mean Corpuscular Volume 90.6 fl (82-101); Mean Platelet Volume 11.2 fL (7.4-10.4); Monocytes # 0.7 10^3/uL (0.2-0.9); Monocytes % 9.1 %; Neutrophils # 4.89 10^3/uL (1.8-7.7); Neutrophils % 62.6 %; Nucleated Red Blood Cells % 0 %; Platelet Count 104 10^3/cmm (157-399); Red Blood Count 4.34 10^6/uL (3.85-5.65); Red Cell Distribution Width 12.8 % (12.1-15.1); White Blood Count 7.81 10^3/uL (3.29-11.43)
[2023-09-05 05:14] LABS: Anion Gap 14.6 (5-19); Blood Urea Nitrogen 22 mg/dL (8-23); Calcium 8.9 mg/dL (8.5-10.5); Carbon Dioxide 21 mmol/L (22-29); Chloride 103 mmol/L (98-107); Glucose 134 mg/dL (65-115); Osmolality Calculated 285 mOsm/kg (285-295); Potassium 3.6 mmol/L (3.5-5.1); Sodium 135 mmol/L (136-145)
[2023-09-05] MEDS: amlodipine 10 mg Tablet PO (05:59)
[2023-09-05 06:00] VITALS: PULSE 71
[2023-09-05 07:33] VITALS: BP 127/57; PULSE 59; RESP 16; TEMP 36.6; O2SAT 94
[2023-09-05] MEDS: aspirin 81 mg EC Tablet PO (08:03)
[2023-09-05] MEDS: tamsulosin 0.4 mg Capsule PO (08:03)
--- NOTE | 2023-09-05 08:54 | P.DS_ITS ---
Discharge Providers Date of Admission: 09/04/23 01:00 Date of Discharge: September 04, 2023 Attending Provider at Admission: Main Echavarria MD Attending Provider at Discharge: Alannah Austin MD Diagnoses at Discharge Discharge Diagnosis (1) TIA (transient ischemic attack): Status: Acute (2) Urinary tract infection: Status: Acute (3) Hypertension: Status: Acute (4) Expressive aphasia: Status: Acute (5) Acute kidney injury: Status: Acute Reason for Visit Reason for Visit: possible stroke Hospital Course Hospital Course Cheikh Alcaraz is a 87 year old male with a past medical history of hypertension, although not on any medications, history of TURP, history of right hip replacement, history of CVA with residual right-sided deficits, who lives with family, ambulates with a walker, has residual right lower extremity weakness, after his stroke, roughly 3 years ago, who presented with word finding difficulty and word salad. He was diagnosed with TIA, atherosclerotic plaques noted on CT head and neck. He has been diagnosed with UTI urinary retention has history of BPH status post TURP. He has remained afebrile he is not showing any signs of sepsis, his creatinine is 1.8 related to postrenal obstruction, I am planning to discharge patient on aspirin, patient and family is against atorvastatin they are okay to use dual antiplatelet therapy for 20 days and then continue aspirin. CT abdomen pelvis did not show any sign of hydronephrosis or kidney stones. Chronic L2 compression fracture which was conveyed to the family . Patient not experiencing any signs of cauda equina. EKG showing sinus rhythm with bradycardia first-degree AV block right bundle branch block. Physical Exam Narrative: Patient is awake and alert Not confused at all GCS 15 Chronic right-sided weakness Currently on room air Blood pressure stable Heart rate between 49-64 he has been hemodynamic stable, no's confusion chest pain or shortness of breath. Discharge Data Studies Completed and Pending Completed Studies During Hospitalization Category Date Time Status CT head wo con* [id number] Stat Cat Scan 09/03/23 19:[address] kidney stone [id number] Stat Cat Scan 09/03/23 23:20 Completed CTA head neck [CT angio headneck* [id number]] Stat Cat Scan 09/03/23 20:10 Completed XR chest 1V portable [id number] Stat Exams 09/03/23 19:27 Completed Pending at discharge Category Date Time Status Basic Metabolic Panel AM LABS Lab 09/05/23 04:00 Ordered Blood Culture Stat Lab 09/03/23 20:35 Results Complete Blood Count w/Auto AM LABS Lab 09/05/23 04:00 Ordered Urine Culture Stat Lab 09/03/23 19:43 Received CV. echo complete* [id number] Routine Ultrasound 09/04/23 01:00 Taken Radiology Impressions Chest X-Ray 09/03/23 19:27 IMPRESSION: No acute findings. Head CT 09/03/23 19:27 IMPRESSION: 1. No acute findings. 2. Moderate cerebral small-vessel disease. 3. 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 4. Age-related involutional changes of brain. ASSESSMENT: ASPECTS ([place] Stroke Program Early CT Score) is 10. Head/Neck CTA 09/03/23 20:10 IMPRESSION: No large vessel stenosis or occlusion. IMPRESSION: 1. Normal right extracranial internal carotid artery by NASCET criteria.. 2. Atheromatous plaque at the origin of the left extracranial ICA with no stenosis by NASCET criteria. 3. Normal bilateral vertebral arteries. REFERENCES: NASCET CRITERIA. The degree of stenosis in the cervical segment of the internal carotid artery is based on NASCET criteria. Normal is no stenosis. Mild is less than 50% stenosis. Moderate is 50-69% stenosis. Severe is 70% to 99% stenosis. Total occlusion is no detectable patent lumen. Abdomen/Pelvis CT 09/03/23 23:20 IMPRESSION: 1. Presently both kidneys are in the excretory phase and ureters appear patent. There is no evidence of acute pyelonephritis however, cystitis and/or pyelitis may be present. 2. Extensive colonic diverticulosis without acute diverticulitis. 3. Prior left hemicolectomy. 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 Laboratory Results WBC 6.31 10^3/uL (3.29-11.43) 09/03/23 20:18 RBC 4.88 10^6/uL (3.85-5.65) 09/03/23 20:18 Hgb 14.40 g/dL (11.27-16.99) 09/03/23 20:18 Hct 44.1 % (37-53) 09/03/23 20:18 MCV 90.4 fl (82-101) 09/03/23 20:18 MCH 29.5 pg (27-33) 09/03/23 20:18 MCHC 32.7 g/dL (30-55) 09/03/23 20:18 RDW 12.9 % (12.1-15.1) 09/03/23 20:18 Plt Count 111 10^3/cmm (157-399) L 09/03/23 20:18 MPV 10.8 fL (7.4-10.4) H 09/03/23 20:18 Neut % (Auto) 58.1 % 09/03/23 20:18 Lymph % (Auto) 26.1 % 09/03/23 20:18 [place] % (Auto) 11.4 % 09/03/23 20:18 Eos % (Auto) 3.3 % 09/03/23 20:18 Baso % (Auto) 0.8 % 09/03/23 20:18 Neut # (Auto) 3.66 10^3/uL (1.8-7.7) 09/03/23 20:18 Lymph # (Auto) 1.7 10^3/uL (0.8-4.8) 09/03/23 20:18 [place] # (Auto) 0.7 10^3/uL (0.2-0.9) 09/03/23 20:18 Eos # (Auto) 0.2 10^3/uL (0.0-0.8) 09/03/23 20:18 Baso # (Auto) 0.1 10^3/uL (0.0-0.1) 09/03/23 20:18 Nucleated RBC % (auto) 0 % 09/03/23 20:18 Nucleated RBCs # 0.0 /100WBC 09/03/23 20:18 PT 12.60 SECONDS (12.1-14.9) 09/03/23 20:18 INR 0.92 (0.8-1.2) 09/03/23 20:18 APTT 24.3 SECONDS (23.9-36.7) 09/03/23 20:18 Sodium 137 mmol/L (136-145) 09/03/23 20:18 Potassium 4.1 mmol/L (3.5-5.1) 09/03/23 20:18 Chloride 103 mmol/L (98-107) 09/03/23 20:18 Carbon Dioxide 26 mmol/L (22-29) 09/03/23 20:18 Anion Gap 12.1 (5-19) 09/03/23 20:18 BUN 24 mg/dL (8-23) H 09/03/23 20:18 Creatinine 1.8 mg/dL (0.7-1.2) H 09/03/23 20:18 GFR Calculation Not Reportable 09/03/23 20:18 Glucose 96 mg/dL (65-115) 09/03/23 20:18 Estimat Average Glucose 105 09/04/23 01:35 Hemoglobin A1c 5.3 % (4.0-6.0) 09/04/23 01:35 Calculated Osmolality 288 mOsm/kg (285-295) 09/03/23 20:18 Lactic Acid 1.4 mmol/L (0.5-2.2) 09/03/23 20:18 Calcium 9.5 mg/dL (8.5-10.5) 09/03/23 20:18 Magnesium 2.0 mg/dL (1.7-2.3) 09/03/23 20:18 Total Bilirubin 0.4 mg/dL (0.15-1.2) 09/03/23 20:18 AST 12 U/L (0-40) 09/03/23 20:18 ALT 9 U/L (0-41) 09/03/23 20:18 Alkaline Phosphatase 75 U/L (40-130) 09/03/23 20:18 Troponin T Baseline 24 ng/L (0-15) H 09/04/23 01:35 Troponin T 120 Minute 25.74 ng/L (0-15) H 09/04/23 03:03 Delta Troponin T 1.74 ABS# (0-10) 09/04/23 03:03 Troponin T Hi Sens 6Hr 26.81 ng/L (0-15) H 09/04/23 07:34 Troponin T Hi Sens 6Hr Delta 2.81 ng/L (0-12) 09/04/23 07:34 C-Reactive Protein 3.0 mg/L (0.0-4.9) 09/04/23 01:35 NT-Pro-B Natriuret Pep 94 pg/mL (0-450) 09/04/23 01:35 Total Protein 7.0 g/dL (6.6-8.7) 09/03/23 20:18 Albumin 3.9 g/dL (3.5-5.2) 09/03/23 20:18 Globulin 3.1 g/dL (1.3-4.6) 09/03/23 20:18 Triglycerides 184 mg/dL (0-150) H 09/04/23 01:35 Cholesterol 161 mg/dL (0-200) 09/04/23 01:35 LDL Cholesterol, Calc 69 mg/dL (50-129) 09/04/23 01:35 HDL Cholesterol 55 mg/dL (60-100) L 09/04/23 01:35 LDL/HDL Ratio 1.25 RATIO (0.00-3.22) 09/04/23 01:35 Cholesterol/HDL Ratio 2.93 mg/dL (1.0-5.00) 09/04/23 01:35 Procalcitonin 0.06 ng/mL (0-0.5) 09/04/23 01:35 TSH 1.60 uIU/mL (0.27-4.20) 09/04/23 01:35 Urine Color Yellow (Yellow) 09/03/23 19:43 Urine Appearance Cloudy (CLEAR) A 09/03/23 19:43 Urine pH 6 (5-7) 09/03/23 19:43 Ur Specific [place] 1.010 (1.005-1.030) 09/03/23 19:43 Urine Protein Neg (Negative) 09/03/23 19:43 Urine Glucose (UA) Norm (Normal) 09/03/23 19:43 Urine Ketones Negative (Negative) 09/03/23 19:43 Urine Blood Neg (Negative) 09/03/23 19:43 Urine Nitrate Negative (Negative) 09/03/23 19:43 Urine Bilirubin Neg (Negative) 09/03/23 19:43 Urine Urobilinogen Neg mg/dL (Negative) 09/03/23 19:43 Ur Leukocyte Esterase 2+ (Negative) H 09/03/23 19:43 Urine RBC 0-4 /hpf (0-2) H 09/03/23 19:43 Urine WBC >100 /hpf (0-5) H 09/03/23 19:43 Ur Squamous Epith Cells None /hpf (0-5) 09/03/23 19:43 Amorphous Sediment Not Reportable 09/03/23 19:43 Urine Bacteria 3+ /hpf (NONE) H 09/03/23 19:43 Ethyl Alcohol < 10 mg/dL (0-10) 09/03/23 20:18 Vitals Last Vital Signs Temp 98.1 F 09/04/23 07:53 Pulse 49 L 09/04/23 07:53 Resp 18 09/04/23 07:53 BP 154/79 09/04/23 07:53 Pulse Ox 95 09/04/23 07:53 O2 Del Method Room Air 09/04/23 07:53 Discharge Plan Discharge Patient Disposition: Home Condition: Stable Prescriptions: New aspirin 81 mg Tablet,Delayed Release (Dr/Ec) 81 mg PO DAILY Qty: 90 0RF clopidogrel [Plavix] 75 mg tablet 75 mg PO DAILY Qty: 20 0RF amlodipine 10 mg Tablet 10 mg PO Q24H Qty: 30 0RF cefpodoxime 200 mg tablet 200 mg PO BID Qty: 14 0RF Rx Instructions: must administer with a meal/food tamsulosin 0.4 mg capsule 0.4 mg PO DAILY Qty: 30 0RF No Action 20 Unknown Names Of Otc Vits See Rx Instructions .ROUTE .COMPLEX Rx Instructions: family states the pt takes around 20 otc vitamins unsure of the names pt is here visiting and hasnt taken them for a week Discharge Orders: Discharge Order (Routine); Ordered 09/05/23 Ordered By: Alannah Austin Discharge Diet: Cardiac Discharge Activity: As per PT/OT instructions Patient Instructions: Opioid Safety Activity Restrictions/Additional Instructions: Please follow-up with urology for urinary retention and keep [place] catheter in until then You will only take aspirin Plavix for 20 days and then continue aspirin You will get cefpodoxime 200 mg twice a day for 7 days only tamsulosin has been added for BPH related symptoms Discharge Attestations Time Spent in Discharge Care*: greater than 30 min Quality Metrics Clinical Quality Measures [ No reported AMI, CVA or VTE this stay] Coding Level of Care Code Acute Code for Chg Fwd Diagnoses TIA (transient ischemic attack) G45.9 Urinary tract infection N39.0 Hypertension I10 Expressive aphasia R47.01 Acute kidney injury N17.9
--- NOTE | 2023-09-05 09:41 | PC.NURSE ---
PER FAMILY SINCE PATIENT LIVES IN [facility] THEY WILL TAKE CARE OF MAKING HOSPITAL DISCHARGE APPOINTMENTS.
[2023-09-05 12:03] VITALS: BP 127/57; PULSE 59; RESP 16; TEMP 36.6; O2SAT 94
== END 2023-09-05 12:05 | disposition home or self-care (01) ==
LOC: ER 22:55 → MEDSURG 09-04 01:52
PROVIDERS: Admitting Provider Family Medicine; Emergency Provider Emergency Medicine; Visit Provider Internal Medicine
DX: G45.9 Transient cerebral ischemic attack, unspecified (principal); R29.702 NIHSS score 2; N39.0 Urinary tract infection, site not specified; I10 Essential (primary) hypertension; R47.01 Aphasia; N17.9 Acute kidney failure, unspecified; I69.998 Other sequelae following unspecified cerebrovascular disease; N40.1 Benign prostatic hyperplasia with lower urinary tract symptoms; R33.8 Other retention of urine; R00.1 Bradycardia, unspecified; I45.10 Unspecified right bundle-branch block; I44.0 Atrioventricular block, first degree; K57.30 Diverticulosis of large intestine without perforation or abscess without bleeding
CPT/HCPCS: 36415; 51702; 51798; 70450; 70496; 70498; 71045; 74176; 80048; 80053; 80061; 80307; 81001; 83036; 83605; 83735; 83880; 84145; 84443; 84484; 85025; 85610; 85730; 86140; 87040; 87077; 87086; 87186; 92523; 92610; 93005; 93306; 94664; 96365; 96372; 96375; 97110; 97116; 97161; 99285; C9113; G0378; J0696; J1650; J3490; J7040; Q9967